=== PATIENT | female | born 1965 | race African-American/Black ===

== ENCOUNTER 2021-11-18 23:26 | Emergency (ER) | payer OTHER ==
[~2021-11-18] VITALS: Ht 180.3 cm; Wt 100.0 kg
[~2021-11-18 23:26] MED LIST: ASPI-986
[2021-11-19] MEDS ORDERED: KETOROLAC 60MG/2ML VIAL IM ONE (00:30)
[2021-11-19] MEDS ORDERED: LIDOCAINE 5% PATCH TOP SCH (00:30)
[2021-11-19] MEDS ORDERED: LIDO700A30 TP (01:23)
[2021-11-19] MEDS ORDERED: IBUP-2029 MT (01:23)
[2021-11-19] MEDS ORDERED: HYDROCODONE/ACETAMINOPHEN 5/325MG TABLET PO ONE (02:00)
[2021-11-19 02:17] VITALS: BP 166/94
== END 2021-11-19 03:24 | disposition home or self-care (01) ==
LOC: ER 23:26
DX: S39.012A Strain of muscle, fascia and tendon of lower back, initial encounter (principal); Y93.B2 Activity, push-ups, pull-ups, sit-ups; Y92.89 Other specified places as the place of occurrence of the external cause
CPT/HCPCS: 96372; 99283; J1885

== ENCOUNTER 2021-11-21 11:58 | Emergency (ER) | payer OTHER ==
[~2021-11-21] VITALS: Ht 175.3 cm; Wt 91.0 kg
[~2021-11-21 11:58] MED LIST changes: +IBUP-2029 MT; +LIDO700A30 TP
[2021-11-21] MEDS ORDERED: PREDNISONE 20MG TABLET PO ONE (12:30)
[2021-11-21] MEDS ORDERED: DIAZEPAM 5 MG TABLET PO ONE (12:30)
[2021-11-21] MEDS ORDERED: CYCL10TA7 MT (13:48)
[2021-11-21 15:39] VITALS: BP 126/86
== END 2021-11-21 15:40 | disposition home or self-care (01) ==
LOC: ER 11:58
DX: S39.012A Strain of muscle, fascia and tendon of lower back, initial encounter (principal); Z20.2 Contact with and (suspected) exposure to infections with a predominantly sexual mode of transmission; X50.9XXA Other and unspecified overexertion or strenuous movements or postures, initial encounter; Y93.89 Activity, other specified; Y92.89 Other specified places as the place of occurrence of the external cause; J45.909 Unspecified asthma, uncomplicated; Z86.718 Personal history of other venous thrombosis and embolism; Z79.82 Long term (current) use of aspirin
CPT/HCPCS: 86592; 99283; J7512

== ENCOUNTER 2024-01-09 16:06 | Emergency (ER) | payer MEDICAID, OTHER ==
[~2024-01-09] VITALS: Ht 175.3 cm; Wt 90.7 kg
[~2024-01-09 16:06] MED LIST changes: +CYCL10TA21 MT
[2024-01-09 16:40] VITALS: O2SAT 100
[2024-01-09 16:57] LABS: BASOPHILS % 0.6 % (0.0-2.0); DIFFERENTIAL COMMENT 0; EOSINOPHILS % 3.2 % (0.0-5.0); HEMATOCRIT. 39.5 % (36.0-48.0); HEMOGLOBIN. 12.9 g/dL (12.0-16.0); MEAN CORPUSCULAR HEMOGLOBIN 29.9 pg (28.0-32.0); MEAN CORPUSCULAR HGB CONC 32.6 g/dL (31.0-37.0); MEAN CORPUSCULAR VOLUME 91.6 fL (81.0-99.0); MEAN PLATELET VOLUME 9.9 fl (7.4-10.4); MONOCYTES % 10.5 % (2.0-8.0); NEUTROPHILS % 61.7 % (40.0-76.0); PLATELET 207 x1000/uL (130-400); RED BLOOD CELL COUNT 4.31 mill/uL (4.2-5.4); RED CELL DISTRIBUTION WIDTH 13.8 % (11.6-14.6); WHITE BLOOD COUNT 4.4 x1000/uL (4.5-11.0)
[2024-01-09 17:14] LABS: ALANINE AMINOTRANSFERASE 58 IU/L (10-49); ALBUMIN 4.2 g/dL (3.2-4.8); ASPARTATE AMINOTRANSFERASE 50 IU/L (<34); BILIRUBIN TOTAL 0.6 mg/dL (0.1-1.0); CALCIUM 8.8 mg/dL (8.7-10.4); CARBON DIOXIDE 26 mEq/L (21-32); CHLORIDE 106 mEq/L (98-107); CREATININE 0.7 mg/dL (0.6-1.0); GLUCOSE 105 mg/dL (70-105); POTASSIUM 3.8 mEq/L (3.5-5.1); PROTEIN TOTAL 8.1 g/dL (6.0-8.3); SODIUM 140 mEq/L (136-145); UREA NITROGEN BLOOD 12 mg/dL (9-23)
[2024-01-09 23:44] VITALS: BP 145/74; PULSE 75; RESP 18; TEMP 97.7
== END 2024-01-09 23:46 | disposition home or self-care (01) ==
LOC: ER 16:06
DX: N93.9 Abnormal uterine and vaginal bleeding, unspecified (principal); J45.909 Unspecified asthma, uncomplicated; Z79.899 Other long term (current) drug therapy; Z79.01 Long term (current) use of anticoagulants
CPT/HCPCS: 36415; 80053; 85025; 99283